=== PATIENT | male | born 1975 | race Caucasian/White ===

== ENCOUNTER 2017-01-30 20:26 | Emergency (ER) | payer BC ==
[~2017-01-30] VITALS: Ht 190.5 cm; Wt 105.0 kg
[~2017-01-30 20:26] MED LIST: ASPI-391 PO; OMEP20CA9 PO
[2017-01-30 20:29] VITALS: TEMP 36.7; Ht 190.5 cm; Wt 105.0 kg
[2017-01-30 21:18] LABS: BASO % 0.2 %; BASO ABS # 0.02 K/uL (0-0.2); COMPLETE YES; EOS % 2.8 %; HEMATOCRIT 45.5 % (42-52); IG% 0.2 %; LYMPH % 33.7 %; LYMPH ABS # 3.11 K/uL (1.2-3.4); MEAN CELL VOLUME 90.3 fL (80-100); MEAN CORPUSCULAR HEMOGLOBIN 31.5 pg (25-34); MEAN CORPUSCULAR HGB CONC 34.9 g/dl (32-36); MEAN PLATELET VOLUME 9.3 fL (7.4-10.4); MONO % 10.3 %; NEUT % 52.8 %; PLATELET COUNT 313 K/uL (130-400); RED BLOOD COUNT 5.04 M/uL (4.7-6.1); WHITE BLOOD COUNT 9.24 K/uL (4.8-10.8)
[2017-01-30] MEDS ORDERED: SODIUM CHLORIDE 0.9% 1000ML 1,000 ML IV SCH (21:30)
[2017-01-30 21:42] LABS: BUN/CREATININE RATIO 12.1 (10-20); CALCIUM 8.7 mg/dl (8.5-10.1); CREATININE 1.4 mg/dl (0.60-1.40); POTASSIUM 3.8 mmol/L (3.5-5.1)
[2017-01-30 21:45] LABS: ALB/GLOB RATIO 1.2 (0.9-2)
--- NOTE | 2017-01-30 21:49 | DIAGNOSTIC IMAGING REPORT ---
CHEST ONE VIEW PORTABLE CLINICAL HISTORY: Weakness. COMPARISON STUDY: Chest radiograph June 12, 2014. FINDINGS: The lung volumes are normal. No consolidation is identified and there is no evidence of pulmonary edema. Cardiomediastinal silhouette is normal. Pulmonary vascularity is normal. The appearance of the chest is unchanged. IMPRESSION: No acute cardiopulmonary findings. Electronically signed by: Sascha Zamora M.D. 01/30/2017 9:48 PM Dictated Date/Time: 01/30/2017 9:47 PM
[2017-01-30 22:05] LABS: VEN BLD GAS O2 SATURATION 90.4 %; VEN BLOOD GAS BASE EXCESS 1.2 mEq/L
[2017-01-30 22:14] LABS: MAGNESIUM 2.1 mg/dl (1.8-2.4); PHOSPHORUS 3.4 mg/dl (2.5-4.9); THYROID STIMULATING HORMONE 4.61 uIu/ml (0.300-4.500)
[2017-01-30 22:22] VITALS: BP 138/76; PULSE 70; O2SAT 95
--- NOTE | 2017-01-30 22:44 | EMERGENCY ROOM VISIT NOTE ---
History Report prepared by Jonn: Aixa Vaz Under the Supervision of: Dr. Vitaly Duggan M.D. First contact with patient: 21:03 Chief Complaint: OTHER COMPLAINT Stated Complaint: SYMTOMS RESEMBLING A STROKE History of Present Illness The patient is a 41 year old white male with a past medical history of PVC, reflux, appendectomy who presents to the ED with a cc of persistent fatigue beginning yesterday. Positive chest pain, heart fluttering, weakness. Had headache, diaphoresis, difficulty concentrating yesterday. Negative SOB, sinus pressure, drainage, cough, nausea, vomiting, abdominal pain. 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 Source of History: patient Onset: yesterday Position: other (global) Quality: other (fatigue) Timing: other (persistent) Associated Symptoms: + headache, + diaphoresis, + chest pain, + weakness, No cough, No SOB, No nausea, No vomiting, No abdominal pain Note: Pt reports heart fluttering, difficulty concentrating. Pt denies sinus pressure , drainage. Review of Systems See HPI for pertinent positives and negatives. A total of ten systems were reviewed and were otherwise negative. Past Medical & Surgical Medical Problems: (1) PVCs (premature ventricular contractions) Family History No pertinent family history stated. Social History Smoking Status: Former Smoker Alcohol Use: occasionally Drug Use: none Housing Status: lives with family Occupation Status: employed Current/Historical Medications Scheduled PRN Omeprazole (Prilosec), 20 MG PO DAILY PRN for GI Upset Allergies Coded Allergies: No Known Allergies (Verified , 03/01/10) Physical Exam Vital Signs Date Time Temp Pulse Resp B/P (MAP) Pulse Ox O2 Delivery O2 Flow Rate FiO2 01/30/17 22:22 70 18 138/76 95 Room Air 01/30/17 21:58 73 20 141/75 97 Room Air 01/30/17 20:57 84 01/30/17 20:29 36.7 77 18 134/83 97 Room Air Physical Exam GENERAL: Awake, alert, well-appearing, NAD, poor dentition. HENT: Normocephalic, atraumatic. EYES: Normal conjunctiva. Sclera non-icteric. NECK: Supple. No nuchal rigidity. FROM. RESPIRATORY: CTAB, no rhonchi, wheezing, crackles CARDIAC: RRR, no MRG ABDOMEN: Soft, NTND, BS+ MSK: No chest wall TTP, no LE edema NEURO: GCS 15, CN 2-12 intact, 5/5 strength in upper and lower extremities, good finger to nose, no pronator drift, no sensory deficits. SKIN: No rash or jaundice noted. Medical Decision & Procedures ER Provider Diagnostic Interpretation: X-ray: Per my interpretation, radiologist review. CHEST ONE VIEW PORTABLE CLINICAL HISTORY: Weakness. COMPARISON STUDY: Chest radiograph June 12, 2014. FINDINGS: The lung volumes are normal. No consolidation is identified and there is no evidence of pulmonary edema. Cardiomediastinal silhouette is normal. Pulmonary vascularity is normal. The appearance of the chest is unchanged. IMPRESSION: No acute cardiopulmonary findings. Electronically signed by: Sascha Zamora M.D. 01/30/2017 9:48 PM Dictated Date/Time: 01/30/2017 9:47 PM Laboratory Results 01/30/17 21:08 Red Blood Count 5.04, Mean Corpuscular Volume 90.3, Mean Corpuscular Hemoglobin 31.5, Mean Corpuscular Hemoglobin Concent 34.9, Mean Platelet Volume 9.3, Neutrophils (%) (Auto) 52.8, Lymphocytes (%) (Auto) 33.7, Monocytes (%) (Auto) 10.3, Eosinophils (%) (Auto) 2.8, Basophils (%) (Auto) 0.2, Neutrophils # (Auto ) 4.88, Lymphocytes # (Auto) 3.11, Monocytes # (Auto) 0.95, Eosinophils # (Auto ) 0.26, Basophils # (Auto) 0.02 01/30/17 21:08 Test 01/30/17 21:08 01/30/17 21:43 White Blood Count 9.24 K/uL (4.8-10.8) Red Blood Count 5.04 M/uL (4.7-6.1) Hemoglobin 15.9 g/dL (14.0-18.0) Hematocrit 45.5 % (42-52) Mean Corpuscular Volume 90.3 fL (80-100) Mean Corpuscular Hemoglobin 31.5 pg (25-34) Mean Corpuscular Hemoglobin Concent 34.9 g/dl (32-36) Platelet Count 313 K/uL (130-400) Mean Platelet Volume 9.3 fL (7.4-10.4) Neutrophils (%) (Auto) 52.8 % Lymphocytes (%) (Auto) 33.7 % Monocytes (%) (Auto) 10.3 % Eosinophils (%) (Auto) 2.8 % Basophils (%) (Auto) 0.2 % Neutrophils # (Auto) 4.88 K/uL (1.4-6.5) Lymphocytes # (Auto) 3.11 K/uL (1.2-3.4) Monocytes # (Auto) 0.95 K/uL (0.11-0.59) Eosinophils # (Auto) 0.26 K/uL (0-0.5) Basophils # (Auto) 0.02 K/uL (0-0.2) RDW Standard Deviation 41.6 fL (36.4-46.3) RDW Coefficient of Variation 12.6 % (11.5-14.5) Immature Granulocyte % (Auto) 0.2 % Immature Granulocyte # (Auto) 0.02 K/uL (0.00-0.02) Anion Gap 6.0 mmol/L (3-11) Est Creatinine Clear Calc Drug Dose 90.1 ml/min Estimated GFR () 71.3 Estimated GFR (Non- 61.5 BUN/Creatinine Ratio 12.1 (10-20) Calcium Level 8.7 mg/dl (8.5-10.1) Phosphorus Level 3.4 mg/dl (2.5-4.9) Magnesium Level 2.1 mg/dl (1.8-2.4) Total Bilirubin 0.6 mg/dl (0.2-1) Aspartate Amino Transf (AST/SGOT) 23 U/L (15-37) Alanine Aminotransferase (ALT/SGPT) 50 U/L (12-78) Alkaline Phosphatase 70 U/L (45-117) Troponin I < 0.015 ng/ml (0-0.045) Total Protein 7.2 gm/dl (6.4-8.2) Albumin 3.9 gm/dl (3.4-5.0) Globulin 3.3 gm/dl (2.5-4.0) Albumin/Globulin Ratio 1.2 (0.9-2) Thyroid Stimulating Hormone (TSH) 4.610 uIu/ml (0.300-4.500) Venous Blood pH 7.44 (7.36-7.41) Venous Blood Partial Pressure CO2 38 mmHg (38.0-50.0) Venous Blood Partial Pressure O2 59 mmHg Venous Blood HCO3 25 mmol/L Venous Blood Oxygen Saturation 90.4 % Venous Blood Base Excess 1.2 mEq/L Lyme Disease IgG Antibody NEG (NEG) Lyme Disease IgM Antibody NEG (NEG) Laboratory results reviewed by me Medications Administered Medications (Trade) Dose Ordered Sig/Bharati Route Start Time Stop Time Status Last Admin Dose Admin Sodium Chloride 1,000 ml @ 999 mls/hr Q1H1M IV 01/30/17 21:30 01/30/17 23:21 DC 01/30/17 21:30 999 MLS/HR ECG Indication: chest pain Rate (beats per minute): 69 Rhythm: normal sinus Findings: other (normal intervals, T wave flattening lead 3, no other STS changes or TWI) ED Course 2105: The patient was evaluated in room B8. A complete history and physical exam was performed. 2228: I reevaluated the patient. He is resting comfortably. Medical Decision The patient is a 41 year old white male with a past medical history of PVC, reflux, appendectomy who presents to the ED with a cc of persistent fatigue beginning yesterday. Triage Nursing notes reviewed. The patient's presentation and history were concerning for dehydration, metabolic abnormality, electrolyte imbalance, arrhythmia, hypothyroid. Patient was seen and evaluated at the bedside. Patient had no focal neuro deficit vital signs were stable. 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 Patient had no symptoms at this time. Patient's EKG was fairly benign 100 and negative chest x-ray laboratory is unremarkable trace the elevated TSH. Patient states he was feeling better was told to follow-up with his PCP for thyroid studies. Patient was given strict follow-up, discharge, return percussions. Patient was also counseled on smoking cessation. Patient clinic care and was discharged home. Medication Reconcilliation Current Medication List: was personally reviewed by me Blood Pressure Screening Patient's blood pressure: Normal blood pressure Blood pressure disposition: Did not require urgent referral Impression Primary Impression: Fatigue Additional Impressions: Generalized weakness Encounter for smoking cessation counseling Scribe Attestation The scribe's documentation has been prepared under my direction and personally reviewed by me in its entirety. I confirm that the note above accurately reflects all work, treatment, procedures, and medical decision making performed by me. Departure Information Dispostion Home / Self-Care Referrals Jignesh Gambino M.D.([facility]) (PCP) Patient Instructions Fatigue Manage, My [facility] Additional Instructions Please return to the emergency department if you have worsening or recurrent symptoms not amenable to at-home treatment. Please call for a follow-up appointment with her primary care physician. Please take your medications as prescribed. If you have other concerns and/or complaints please feel free to also call your primary care physician's office or return the ED for further evaluation, management, and treatment. Problem Qualifiers Primary Impression: Fatigue Fatigue type: unspecified Qualified Codes: R53.83 - Other fatigue
[2017-01-30 22:57] LABS: LYME DISEASE AB IGG NEG (NEG); LYME DISEASE AB IGM NEG (NEG)
== END 2017-01-30 22:50 | disposition home or self-care (01) ==
LOC: C.EDB 20:27
DX: R53.83 Other fatigue (principal); R53.1 Weakness; Z87.891 Personal history of nicotine dependence; Z90.89 Acquired absence of other organs

== ENCOUNTER 2017-06-02 19:24 | Emergency (ER) | payer BC ==
[~2017-06-02] VITALS: Ht 190.5 cm; Wt 109.0 kg
[~2017-06-02 19:24] MED LIST changes: -ASPI-391 PO
[2017-06-02 19:29] VITALS: TEMP 36.6; Ht 190.5 cm; Wt 109.0 kg
[2017-06-02 19:38] VITALS: O2SAT 98
--- NOTE | 2017-06-02 19:47 | EMERGENCY ROOM VISIT NOTE ---
History First contact with patient: 19:32 Chief Complaint: CARDIAC ASSESSMENT Stated Complaint: DISCOMFORT/PAIN IN LEFT CHEST AND ARM Nursing Triage Summary: Pt presents with c/o left sided chest pain into left arm, burping a lot today, fatigue with work, sob with exertion. Episode of cp last night, resolved then returned this morning at 0900 and has been constant. Reports hx of PVC's. History of Present Illness The patient is a 41 year old male who presents to the Emergency Room with complaints of chest pain. Left side of his chest radiating to left elbow, severity 2/10, no associated diaphoresis, shortness of breath, nausea or vomiting. No worse on palpation, exertion or position. It started at 8pm last night, lasted for 15 minutes, occurred when lying up in bed watching TV, then laid down and went to sleep. He did not wake up with pain. 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 He has known reflex and has noticed increased burping with acid taste in the last 2 days. He has taken omeprazole for a number of years which usually keeps it under control. No recent changes to his diet. 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 He denies any calf pain, swelling or recent surgeries. He denies any fevers, chills, nasal congestion, ear pain, cough, sore throat. In past 3-4 weeks two colleagues have had heart attack and a bypass so he is hypersensitive to his symptoms. Stopped smoking October 19 - pack-year history. No chew or illicit drugs. Review of Systems All other systems reviewed and otherwise negative other than HPI Past Medical/Surgical History Medical Problems: (1) PVCs (premature ventricular contractions) Social History Smoking Status: Former Smoker (quit Oct 19 2016) Alcohol Use: occasionally Drug Use: none Housing Status: lives with family Occupation Status: employed Current/Historical Medications Scheduled PRN Omeprazole (Prilosec), 20 MG PO DAILY PRN for GI Upset Physical Exam Vital Signs Date Time Temp Pulse Resp B/P (MAP) Pulse Ox O2 Delivery O2 Flow Rate FiO2 06/02/17 20:21 78 06/02/17 19:53 76 20 146/92 98 Room Air 06/02/17 19:38 98 Room Air 06/02/17 19:29 36.6 87 18 156/109 97 Room Air Physical Exam General Appearance: WD/WN, no apparent distress, + obese Head: normocephalic, atraumatic Eyes: normal inspection (pupils equal), EOMI ENT: pharynx normal Neck: supple, no JVD, trachea midline, + pertinent finding (negative spurling's maneuver) Respiratory/Chest: chest non-tender, lungs clear, normal breath sounds, no respiratory distress, no accessory muscle use, + pertinent finding (pain is not reproducible on palpation) Cardiovascular: regular rate, rhythm, no edema, no murmur, normal peripheral pulses Abdomen / GI: normal bowel sounds, non tender, soft Back: no CVA tenderness Extremities: no calf tenderness, normal capillary refill, no pedal edema 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 No pneumothorax, pleural effusion, focal airspace consolidation or overt pulmonary edema. Bones of the chest appear grossly intact. IMPRESSION: No acute process. The above report was generated using voice recognition software. It may contain grammatical, syntax or spelling errors. Electronically signed by: Denver Houston M.D. 06/02/2017 8:09 PM Dictated Date/Time: 06/02/2017 8:08 PM Laboratory Results 06/02/17 19:40 Red Blood Count 4.89, Mean Corpuscular Volume 90.2, Mean Corpuscular Hemoglobin 31.1, Mean Corpuscular Hemoglobin Concent 34.5, Mean Platelet Volume 9.2, Neutrophils (%) (Auto) 57.0, Lymphocytes (%) (Auto) 30.8, Monocytes (%) (Auto) 9.8, Eosinophils (%) (Auto) 2.1, Basophils (%) (Auto) 0.1, Neutrophils # (Auto) 4.92, Lymphocytes # (Auto) 2.66, Monocytes # (Auto) 0.85, Eosinophils # (Auto) 0.18, Basophils # (Auto) 0.01 06/02/17 19:40 Test 06/02/17 19:40 White Blood Count 8.64 K/uL (4.8-10.8) Red Blood Count 4.89 M/uL (4.7-6.1) Hemoglobin 15.2 g/dL (14.0-18.0) Hematocrit 44.1 % (42-52) Mean Corpuscular Volume 90.2 fL (80-100) Mean Corpuscular Hemoglobin 31.1 pg (25-34) Mean Corpuscular Hemoglobin Concent 34.5 g/dl (32-36) Platelet Count 336 K/uL (130-400) Mean Platelet Volume 9.2 fL (7.4-10.4) Neutrophils (%) (Auto) 57.0 % Lymphocytes (%) (Auto) 30.8 % Monocytes (%) (Auto) 9.8 % Eosinophils (%) (Auto) 2.1 % Basophils (%) (Auto) 0.1 % Neutrophils # (Auto) 4.92 K/uL (1.4-6.5) Lymphocytes # (Auto) 2.66 K/uL (1.2-3.4) Monocytes # (Auto) 0.85 K/uL (0.11-0.59) Eosinophils # (Auto) 0.18 K/uL (0-0.5) Basophils # (Auto) 0.01 K/uL (0-0.2) RDW Standard Deviation 41.7 fL (36.4-46.3) RDW Coefficient of Variation 12.6 % (11.5-14.5) Immature Granulocyte % (Auto) 0.2 % Immature Granulocyte # (Auto) 0.02 K/uL (0.00-0.02) D-Dimer 220 ug/L FEU (0-500) Anion Gap 6.0 mmol/L (3-11) Est Creatinine Clear Calc Drug Dose 123.4 ml/min Estimated GFR () 102.2 Estimated GFR (Non- 88.1 BUN/Creatinine Ratio 15.2 (10-20) Calcium Level 8.4 mg/dl (8.5-10.1) Troponin I < 0.015 ng/ml (0-0.045) Chemistry Specimen Hemolysis Medications Administered Medications (Trade) Dose Ordered Sig/Bharati Route Start Time Stop Time Status Last Admin Dose Admin Ranitidine HCl (zANTac TAB) 150 mg NOW STAT PO 06/02/17 19:58 06/02/17 19:59 DC 06/02/17 20:09 150 MG ED Course 19:40 Complete history and physical was performed by myself 20:[address] Verma who separately performed history and physical 21:15 Patient was reassessed, lab work, imaging and EKG was discussed with the patient and he was discharged in a stable condition. Information leaflet was given for reducing his GERD symptoms. Medical Decision Prior records/ancillary studies reviewed. Triage Nursing notes reviewed. Additional history obtained from patient. The patient's history was concerning for chest pain. Differential diagnosis: Etiologies such as cardiac ischemia, aortic dissection, pulmonary embolism, pneumonia, pneumothorax, musculoskeletal, infections, pericarditis, myocarditis , esophageal rupture, gastrointestinal, as well as others were entertained. Physical examination: As above. Chest pain not reproducible on palpation ER treatment provided: Ranitidine 150mg PO On reassessment the patient felt better. Diagnostic interpretation by me: The electrocardiogram was negative for pathologic change. The labs were unremarkable with negative troponin and d-dimer Imaging studies: Chest x-ray negative for acute pathology as above By the evaluation outlined above emergent etiologies such as cardiac ischemia, aortic dissection, pulmonary embolism, pneumonia, pneumothorax, infections, pericarditis, myocarditis, gastrointestinal, as well as others were deemed relatively unlikely. Given history and distribution of pain in T1 distribution on left side this is most likely a nerve root irritation. Advised against NSAIDs given GERD which is another possible etiology of his pain. The patient was informed about the findings as listed above. All questions were answered and he was pleased with the treatment. Return instructions were outlined and the patient was discharged in stable condition. Referral: The patient was referred back to his primary care physician for follow-up in the next week for a recheck of the current condition. Recommend discussing management/investigations for GERD, chronic diarrhea and likely T1 nerve root irritation pain. Medication Reconcilliation Current Medication List: was personally reviewed by me Blood Pressure Screening Patient's blood pressure: Elevated blood pressure Blood pressure disposition: Elevated BP felt to be situational, Referred to PCP Impression Primary Impression: Non-cardiac chest pain Departure Information Dispostion Home / Self-Care Condition GOOD Referrals Jignesh Gambino M.D. ([facility]) (PCP) Patient Instructions My [facility] Additional Instructions CHEST PAIN INSTRUCTIONS: Acetaminophen(Tylenol) may be used for fever or pain. Use 1000mg every eight hours as needed. Avoid using more than 3000mg in a 24 hour period. This is available over the counter. Read all the package inserts or medication information paperwork provided. If you have any questions or concerns call your primary provider, pharmacist or the ER for assistance. Rest and drink plenty of fluids as tolerated. Continue current medications. Avoid strenuous activities and anything that worsens your pain. Resume normal activities once your symptoms resolve. Return to the ER immediately for worsening or persistent chest pain, abdominal pain, vomiting, fevers, chest pains, difficulty breathing, worsening of your condition, or as needed. Follow up with your primary physician in 2-3 days for a recheck of your current condition. Recommend you discuss further treatment/investigations of your reflux as this no longer appears well controlled. Discuss chronic diarrhea as this has never been investigated. You pain is likely due to a neuropathy likely coming from T1 level in your back - recommend you discuss this with your PCP in addition as physical therapy can help with this. Resident Tracking Resident Involvement: Resident Care Provided Care Provided: Adult ED
[2017-06-02] MEDS ORDERED: RANITIDINE HCL 150 MG TAB PO STA (19:58)
[2017-06-02 20:01] LABS: BASO % 0.1 %; BASO ABS # 0.01 K/uL (0-0.2); COMPLETE YES; EOS % 2.1 %; HEMATOCRIT 44.1 % (42-52); IG% 0.2 %; LYMPH % 30.8 %; LYMPH ABS # 2.66 K/uL (1.2-3.4); MEAN CELL VOLUME 90.2 fL (80-100); MEAN CORPUSCULAR HEMOGLOBIN 31.1 pg (25-34); MEAN CORPUSCULAR HGB CONC 34.5 g/dl (32-36); MEAN PLATELET VOLUME 9.2 fL (7.4-10.4); MONO % 9.8 %; PLATELET COUNT 336 K/uL (130-400); RED BLOOD COUNT 4.89 M/uL (4.7-6.1); WHITE BLOOD COUNT 8.64 K/uL (4.8-10.8)
--- NOTE | 2017-06-02 20:11 | DIAGNOSTIC IMAGING REPORT ---
CHEST ONE VIEW PORTABLE HISTORY: 41 years-old Male chest pain acute atypical chest pain COMPARISON: Portable chest radiograph 01/30/2017 TECHNIQUE: Portable upright AP view of the chest FINDINGS: Cardiomediastinal and hilar silhouettes are within normal limits. No pneumothorax, pleural effusion, focal airspace consolidation or overt pulmonary edema. Bones of the chest appear grossly intact. IMPRESSION: No acute process. The above report was generated using voice recognition software. It may contain grammatical, syntax or spelling errors. Electronically signed by: Denver Houston M.D. 06/02/2017 8:09 PM Dictated Date/Time: 06/02/2017 8:08 PM
--- NOTE | 2017-06-02 20:25 | EMERGENCY ROOM VISIT NOTE ---
ED Visit Note First contact with patient: 19:31 I have personally evaluated this patient examined her and reviewed the pertinent labs and data. I have discussed the case with Dr. Cunningham, the resident physician and agree with the plan. Please refer to the PA note. This patient comes in after having persistent chest pains since 9 o'clock this mornings and one small spot in his anterior chest and it radiates to his armpit. He says he actually feels better when he gets up and moves, he is a operator and truck driver. It is Non-pleuritic and he has no shortness of breath or palpitations or syncope. No trauma. He appears comfortable on my exam is not significantly reproducible. EKG does not show anything to suggest acute coronary syndrome or arrhythmia. Chest x-ray was unremarkable. His cardiac enzyme was negative despite having almost 12 hours of pain persistently and I think this makes cardiac disease highly unlikely his symptoms are atypical as well. There is no evidence of pneumothorax CHF or pneumonia. His d-dimer is within normal limits and in a low pretest probability study makes PE highly unlikely. This may be musculoskeletal or GI related. He will follow up with his doctor for recheck and further treatment and evaluation return to the ER if any new problems or concerns.
[2017-06-02 20:38] LABS: BLOOD UREA NITROGEN 16 mg/dl (7-18); BUN/CREATININE RATIO 15.2 (10-20); CALCIUM 8.4 mg/dl (8.5-10.1); CARBON DIOXIDE 27 mmol/L (21-32); CHLORIDE 105 mmol/L (98-107); CREATININE 1.04 mg/dl (0.60-1.40); GLUCOSE 96 mg/dl (70-99); POTASSIUM 3.8 mmol/L (3.5-5.1); SODIUM 138 mmol/L (136-145)
[2017-06-02 21:50] VITALS: BP 134/84; PULSE 74; O2SAT 98
== END 2017-06-02 21:50 | disposition home or self-care (01) ==
LOC: C.EDB 19:25 → C.EDA 21:50
DX: R07.89 Other chest pain (principal); M79.602 Pain in left arm; Z87.891 Personal history of nicotine dependence

== ENCOUNTER 2021-07-15 16:48 | Observation (INO) ==
--- NOTE | 2021-07-15 17:28 | XRay Report ---
XR chest 1V portable CLINICAL HISTORY: Atypical chest pain TECHNIQUE: Single frontal radiograph of the chest was obtained. Comparison: Chest 1 view 03/27/2021 FINDINGS: No lines and tubes are seen. The cardiomediastinal silhouette is normal. The lungs are clear. No evid ence of pleural effusion or pneumothorax. IMPRESSION: No acute chest disease. ACT 112: Negative or not required by law. Electronically signed by: Horacio Medrano M.D. 07/15/2021 5:27 PM
[2021-07-15 17:51] LABS: Basophils # (auto) 0.02 K/uL (0-0.2); Basophils % (auto) 0.3 %; Eosinophils # (auto) 0.25 K/uL (0-0.5); Eosinophils % (auto) 3.6 %; Hemoglobin 15.7 g/dL (14.0-18.0); Immature Granulocytes # (auto) 0.01 K/uL (0.00-0.02); Immature Granulocytes % (auto) 0.1 %; Lymphocytes # (auto) 2.01 K/uL (1.2-3.4); Lymphocytes % (auto) 28.8 %; Mean Corpuscular Hgb Conc 34.1 g/dL (32-36); Mean Corpuscular Volume 90.9 fL (80-100); Mean Platelet Volume 9.3 fL (7.4-10.4); Monocytes # (auto) 0.86 K/uL (0.11-0.59); Monocytes % (auto) 12.3 %; Neutrophils # (auto) 3.82 K/uL (1.4-6.5); Neutrophils % (auto) 54.9 %; Platelet Count 329 K/uL (130-400); RDW Standard Deviation 43.1 fL (36.4-46.3); Red Blood Count 5.06 M/uL (4.7-6.1); White Blood Count 6.97 K/uL (4.8-10.8)
[2021-07-15 18:00] LABS: INR 0.9 (0.9-1.1); Partial Thromboplastin Ratio 1.1; Partial Thromboplastin Time 27.9 Seconds (21.0-31.0); Prothrombin Time 9.6 Seconds (9.0-12.0)
[2021-07-15 18:31] LABS: Appearance Urine Clear (Clear); Bilirubin Urine Negative (Negative); Blood Urine Negative (Negative); Color Urine Yellow; Glucose Urine UA Negative (Negative); Ketones Urine Negative (Negative); Leukocyte Esterase Urine Negative (Negative); Nitrite Urine Negative (Negative); Protein Urine Negative (Negative); Specific Gravity Urine 1.006 (1.000-1.030); Urobilinogen Urine Negative (Negative); pH Urine 6.5 (4.5-7.5)
[2021-07-15 18:32] LABS: Alanine Aminotransferase 30 U/L (7-52); Albumin Globulin Ratio 1.6 (0.9-2); Albumin Level 4.4 gm/dl (3.4-5.0); Alkaline Phosphatase 63 U/L (34-104); Anion Gap 6 (3-11); Aspartate Aminotransferase 21 U/L (13-39); BUN Creatinine Ratio 12.2 (10-20); Bilirubin,Total 0.9 mg/dl (0.2-1.0); Blood Urea Nitrogen 12 mg/dl (6-23); Calcium 9.1 mg/dl (8.5-10.1); Carbon Dioxide 29 mmol/L (21-32); Chloride 103 mmol/L (98-107); Creatinine Clr Calc Pharmacy 128.8 ml/min; Est GFR (African American) 106.7 ml/min; Est GFR (Non-African American) 92.1 ml/min; Globulin 2.8 gm/dl (2.5-4.0); Glucose 88 mg/dl (70-99(Fasting)); Potassium 3.7 mmol/L (3.5-5.1); Sodium 138 mmol/L (136-145); Total Protein 7.2 gm/dl (6.0-8.3)
[2021-07-15 20:28] LABS: D Dimer 260 ug/L FEU (0-500)
[2021-07-15] MEDS ORDERED: ASPIRIN CHEW 324 MG PO STA (20:29)
[2021-07-15 21:16] LABS: Troponin I < 0.03 ng/ml (0-0.04)
--- NOTE | 2021-07-16 00:03 | Emergency Department Note ---
History of Present Illness General Chief Complaint: Arrhythmia/Palpitations Stated Complaint: HEART PALPITATIONS, WEARING MONITOR, GETTING WORSE Time Seen by Provider: 07/15/21 20:07 History of Present Illness Provider Complaint: + palpitations Onset (ago): month(s) (1) Duration: + Intermittent Severity: mild Maximum Pain Intensity: 3 Current Pain Intensity: 3 Context: + occurred during rest and + occurred during exertion Associated symptoms: + chest pain and + shortness of breath; no syncope, no nausea, no vomiting, no diaphoresis, no cough or no feeling of impending doom HPI narrative: Patient states his symptoms began after testing positive for COVID-19 1 month ago. Patient was unvaccinated. Patient states he was seen by [facility] cardiology and has a Holter monitor on but he states that he does not have the readings for. Patient states he has an yakov on his watch which shows that he has multiple PVCs. Home Medications Medication Instructions Recorded Confirmed Type omeprazole 20 mg delayed 20 mg PO DAILY PRN 06/29/18 07/15/21 History release,disintegrating tablet Allergies Allergy/AdvReac Type Severity Reaction Status Date / Time No Known Allergies Allergy Verified 07/15/21 21:14 Past Med/Surg History Medical History COVID Palpitations Surgical History Hx of appendectomy Family History Other Diabetes Hypertension Social History Smoking Status: Former smoker Preferred Language: Japanese Feels Safe at Home: Yes Review of Systems A total of 10 systems reviewed and were otherwise negative Physical Exam Vital Signs: Vital Signs - 24 hr 07/15/21 16:53 07/15/21 20:30 07/15/21 22:00 Temperature 36.3 C L Temperature Source Oral Pulse Rate 79 72 Pulse Rate [Left F og] 68 63 Respiratory Rate 18 20 20 Respiratory Effort / Characteristics Non-Labored Non-Labored Sponta neous Non-Labored Sponta neous Respiratory Depth Normal Normal Normal Respiratory Patter n Regular Regular Blood Pressure 134/92 Blood Pressure [Ri ght Arm] 142/95 H 131/93 Blood Pressure Martina n 106 Blood Pressure Martina n [Right Arm] 110 105 Blood Pressure Pos ition Sitting Blood Pressure Pos ition [Right Arm] Sitting Sitting Pulse Oximetry 99 100 98 Oxygen Delivery Me thod Room Air Room Air Room Air Sepsis Recent Feve r Within 48 Hours No Sepsis New/Unexpla ined Change in Men williams Status No Sepsis Action Take n by Nursing No Action Required 07/15/21 22:30 Temperature Temperature Source Pulse Rate 63 Pulse Rate [Left F og] Respiratory Rate 17 Respiratory Effort / Characteristics Respiratory Depth Respiratory Patter n Blood Pressure 134/82 Blood Pressure [Ri ght Arm] Blood Pressure Martina n 99 Blood Pressure Martina n [Right Arm] Blood Pressure Pos ition Blood Pressure Pos ition [Right Arm] Pulse Oximetry 97 Oxygen Delivery Me thod Room Air Sepsis Recent Feve r Within 48 Hours Sepsis New/Unexpla ined Change in Men williams Status Sepsis Action Take n by Nursing Physical Exam: Physical Exam GENERAL: He is oriented to person, place, and time. He appears well-developed and well-nourished. He does not appear distressed. HENT: Exam performed. - Head: Normocephalic and atraumatic. - Right Ear: External ear normal. No mastoid tenderness. - Left Ear: External ear normal. No mastoid tenderness. - Mouth/Throat: The oropharynx is clear and moist. No trismus in the jaw. No dental abscesses or uvula swelling. No oropharyngeal exudate or tonsillar abscesses. EYES: Conjunctivae and EOM are normal. Pupils are equal, round, and reactive to light. Right eye exhibits no discharge. Left eye exhibits no discharge. No scleral icterus. NECK: Normal range of motion. Neck supple. No JVD present. No spinous process tenderness present. No carotid bruit present. No rigidity. No tracheal deviation and normal range of motion present. No Brudzinski's sign and no Kernig's sign noted. CV: Normal rate, regular rhythm, normal heart sounds and intact distal pulses. There is no peripheral edema. Palpable radial pulses bue. PULM/CHEST: Effort normal and breath sounds normal. No respiratory distress. No stridor. He has no wheezes. He has no rales. - Chest Wall: He exhibits no tenderness. Holter monitor device in place. ABD: The abdomen is soft. Bowel sounds are normal. He has no distension. No mass is present. There is no tenderness. There is no rebound, no guarding, no Le's sign and no tenderness at McBurney's point. Rovsig negative. MUSC/SKEL: Normal range of motion. There is no peripheral edema, tenderness or deformity. LYMPH: No cervical adenopathy. NEURO: He is alert and oriented to person, place, and time. He has normal strength. No cranial nerve deficit or sensory deficit. Coordination and gait normal. GCS eye subscore is 4. GCS verbal subscore is 5. GCS motor subscore is 6. Cerebellar tests wnl. SKIN: Skin is warm and dry. He is not diaphoretic. PSYCH: He has a normal mood and affect. Behavior is normal. Judgment and thought content normal. Course Course 2006: The patient was evaluated in room C7. A complete history and physical exam was performed Cardiac monitoring: An order was placed for continuous cardiac monitoring. The monitor shows a rate of 70 with sinus rhythm 2130: Vital signs stable. Labs and imaging within normal limits. Patient will be admitted for observation for chest pain rule out ACS. Administered Medications Discontinued Medications Aspirin (Aspirin Chew 324 Mg) 324 mg PO NOW STA Stop: 07/15/21 20:30 Last Admin: 07/15/21 20:35 Dose: 324 mg Documented by: [id number] Medical Decision Making Laboratory Data Result diagrams: 07/15/21 17:32 07/15/21 17:32 Lab Results 07/15/21 07/15/21 07/15/21 Range/Units 17:32 17:32 17:32 WBC 6.97 (4.8-10.8) K/uL RBC 5.06 (4.7-6.1) M/uL Hgb 15.7 (14.0-18.0) g/dL Hct 46.0 (42-52) % MCV 90.9 (80-100) fL MCH 31.0 (25-34) pg MCHC 34.1 (32-36) g/dL RDW Std Deviation 43.1 (36.4-46.3) fL RDW Coeff of Colleen 13.0 (11.5-14.5) % Plt Count 329 (130-400) K/uL MPV 9.3 (7.4-10.4) fL Immature Gran % (Auto) 0.1 % Neut % (Auto) 54.9 % Lymph % (Auto) 28.8 % [place] % (Auto) 12.3 % Eos % (Auto) 3.6 % Baso % (Auto) 0.3 % Neut # (Auto) 3.82 (1.4-6.5) K/uL Lymph # (Auto) 2.01 (1.2-3.4) K/uL [place] # (Auto) 0.86 H (0.11-0.59) K/uL Eos # (Auto) 0.25 (0-0.5) K/uL Baso # (Auto) 0.02 (0-0.2) K/uL Immature Gran # (Auto) 0.01 (0.00-0.02) K/uL PT 9.6 (9.0-12.0) Seconds INR 0.9 (0.9-1.1) APTT 27.9 (21.0-31.0) Seconds PTT Ratio 1.1 D-Dimer 260 (0-500) ug/L FEU Sodium 138 (136-145) mmol/L Potassium 3.7 (3.5-5.1) mmol/L Chloride 103 (98-107) mmol/L Carbon Dioxide 29 (21-32) mmol/L Anion Gap 6 (3-11) BUN 12 (6-23) mg/dl Creatinine 0.98 (0.6-1.4) mg/dl Est Cr Clr Drug Dosing 128.8 ml/min Est GFR ( Amer) 106.7 ml/min Est GFR (Non-Af Amer) 92.1 ml/min BUN/Creatinine Ratio 12.2 (10-20) Glucose 88 (70-99(Fasting)) mg/dl Calcium 9.1 (8.5-10.1) mg/dl Magnesium (1.7-2.4) mg/dl Total Bilirubin 0.9 (0.2-1.0) mg/dl AST 21 (13-39) U/L ALT 30 (7-52) U/L Alkaline Phosphatase 63 (34-104) U/L Troponin I < 0.03 (0-0.04) ng/ml Total Protein 7.2 (6.0-8.3) gm/dl Albumin 4.4 (3.4-5.0) gm/dl Globulin 2.8 (2.5-4.0) gm/dl Albumin/Globulin Ratio 1.6 (0.9-2) Urine Color Urine Appearance (Clear) Urine pH (4.5-7.5) Ur Specific [place] (1.000-1.030) Urine Protein (Negative) Urine Glucose (UA) (Negative) Urine Ketones (Negative) Urine Blood (Negative) Urine Nitrite (Negative) Urine Bilirubin (Negative) Urine Urobilinogen (Negative) Ur Leukocyte Esterase (Negative) SARS-CoV-2, RNA, NAAT (NEGATIVE) 07/15/21 07/15/21 07/15/21 Range/Units 17:34 18:00 20:20 WBC (4.8-10.8) K/uL RBC (4.7-6.1) M/uL Hgb (14.0-18.0) g/dL Hct (42-52) % MCV (80-100) fL MCH (25-34) pg MCHC (32-36) g/dL RDW Std Deviation (36.4-46.3) fL RDW Coeff of Colleen (11.5-14.5) % Plt Count (130-400) K/uL MPV (7.4-10.4) fL Immature Gran % (Auto) % Neut % (Auto) % Lymph % (Auto) % [place] % (Auto) % Eos % (Auto) % Baso % (Auto) % Neut # (Auto) (1.4-6.5) K/uL Lymph # (Auto) (1.2-3.4) K/uL [place] # (Auto) (0.11-0.59) K/uL Eos # (Auto) (0-0.5) K/uL Baso # (Auto) (0-0.2) K/uL Immature Gran # (Auto) (0.00-0.02) K/uL PT (9.0-12.0) Seconds INR (0.9-1.1) APTT (21.0-31.0) Seconds PTT Ratio D-Dimer (0-500) ug/L FEU Sodium (136-145) mmol/L Potassium (3.5-5.1) mmol/L Chloride (98-107) mmol/L Carbon Dioxide (21-32) mmol/L Anion Gap (3-11) BUN (6-23) mg/dl Creatinine (0.6-1.4) mg/dl Est Cr Clr Drug Dosing ml/min Est GFR ( Amer) ml/min Est GFR (Non-Af Amer) ml/min BUN/Creatinine Ratio (10-20) Glucose (70-99(Fasting)) mg/dl Calcium (8.5-10.1) mg/dl Magnesium 2.0 (1.7-2.4) mg/dl Total Bilirubin (0.2-1.0) mg/dl AST (13-39) U/L ALT (7-52) U/L Alkaline Phosphatase (34-104) U/L Troponin I (0-0.04) ng/ml Total Protein (6.0-8.3) gm/dl Albumin (3.4-5.0) gm/dl Globulin (2.5-4.0) gm/dl Albumin/Globulin Ratio (0.9-2) Urine Color Yellow Urine Appearance Clear (Clear) Urine pH 6.5 (4.5-7.5) Ur Specific [place] 1.006 (1.000-1.030) Urine Protein Negative (Negative) Urine Glucose (UA) Negative (Negative) Urine Ketones Negative (Negative) Urine Blood Negative (Negative) Urine Nitrite Negative (Negative) Urine Bilirubin Negative (Negative) Urine Urobilinogen Negative (Negative) Ur Leukocyte Esterase Negative (Negative) SARS-CoV-2, RNA, NAAT NEGATIVE (NEGATIVE) Imaging Data Radiologist's Impression: Chest X-Ray 07/15/21 16:58 XR chest 1V portable CLINICAL HISTORY: Atypical chest pain TECHNIQUE: Single frontal radiograph of the chest was obtained. Comparison: Chest 1 view 03/27/2021 FINDINGS: No lines and tubes are seen. The cardiomediastinal silhouette is normal. The lungs are clear. No evidence of pleural effusion or pneumothorax. IMPRESSION: No acute chest disease. ACT 112: Negative or not required by law. Electronically signed by: Horacio Medrano M.D. 07/15/2021 5:27 PM ECG Data Indication: chest pain, palpitations and SOB/dyspnea Rate (beats per minute): 70 Rhythm: normal sinus Findings: no ST depression, no ST elevation or no prolonged QT MDM Narrative Vital signs stable. Labs and imaging within normal limits. Patient will be admitted for observation for chest pain rule out ACS. Impression & Plan Chest pain Discharge Plan Visit Data Chief Complaint: Arrhythmia/Palpitations Stated Complaint: HEART PALPITATIONS, WEARING MONITOR, GETTING WORSE Discharge Problem: Chest pain Patient Disposition: Being Evaluated by Hospitalist Forms Stand Alone Forms: [facility] Prescriptions Prescriptions: No Action omeprazole 20 mg Tablet,Disintegrat, Delay Rel 20 mg PO DAILY PRN (Reason: Acid Reflux) RF: 0 Referrals Referrals: Garret Pena DO [Primary Care Provider] -
--- NOTE | 2021-07-16 01:22 | History and Physical Report ---
DATE OF ADMISSION: 07/15/2021. CHIEF COMPLAINT: Arrhythmia, chest pain. HISTORY OF PRESENT ILLNESS: This is a 45-year-old male with a past medical history significant for pulmonary sarcoidosis, dyspnea on exertion. He had COVID in May [id number]. The patient is having frequent PVCs. He was recently placed on Zio patch for his PVCs, but the patient says lately it is getting more frequent.. Sometimes he feels some stinging in his chest. Today it was constant, he was getting tired and also shortness of breath on exertion, which prompted him to come to the ER. Since COVID in May, he still feels tired. Currently, resting comfortably and hemodynamically stable. Currently, denies any shortness of breath. No cough, no headache. Once in a while, he gets blurred visions. No runny nose, no sore throat. Appetite is okay. No difficulty swallowing. No nausea, no abdominal pain. Normal bowel and bladder movements. Ambulating and climbing steps fine. ALLERGIES: No known drug allergies. PAST MEDICAL HISTORY: As mentioned above. 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 MEDICATIONS: The patient is on omeprazole 20 daily p.r.n. FAMILY HISTORY: Significant for father has diabetes, hypertension; mother has hypertension, familial tremor; maternal grandfather has familial tremor; paternal grandmother had lung cancer. SOCIAL HISTORY: . Quit smoking in 2017, smoked half pack a day for 30 years. Alcohol rare. No drug use. REVIEW OF SYSTEMS: As per HPI. Rest of the review of systems is negative. PHYSICAL EXAMINATION: GENERAL: The patient is of moderate build, not in acute distress. VITAL SIGNS: Temperature 36.3, pulse 63, respiratory rate 17, blood pressure 134/82, oxygen 97% on room air. HEENT: Pupils equal, round, and reactive to light. Oral mucosa moist. NECK: No JVD, no neck masses. CARDIOVASCULAR: S1 and S2 heard. Regular rate and rhythm. No murmur, no gallop. RESPIRATORY SYSTEM: Normal AP diameter. No accessory muscle use. No wheezing, no crackles. ABDOMEN: Soft, bowel sounds present, nontender, no distention. CENTRAL NERVOUS SYSTEM: Cranial nerves II-XII grossly intact, nonfocal. EXTREMITIES: No edema, no erythema. LABORATORY DATA: WBC 6.9, hemoglobin 15.7, hematocrit 46, platelets 329. PT 9.6, INR 0.9, APTT 27.9, D-dimer 260. Sodium 138, potassium 3.7, chloride 103, bicarb 29, BUN 12, creatinine 0.9, serum glucose 88, calcium 9.1, magnesium 2, total bilirubin 0.9, AST 21, ALT 30, alkaline phosphatase 63. Troponin I less than 0.03. Urinalysis negative. SARS-CoV-2 RNA negative. IMAGING DATA: Chest x-ray, no acute findings. EKG: Normal sinus rhythm at a rate of 70, no significant change was found. ASSESSMENT AND PLAN: This 45-year-old male presents with frequent PVCs, and chest pain. 1. Frequent PVCs and chest pain: The patient today was feeling PVCs all day.He can feel them.He has chronic back problem, pain in the middle of the shoulder blades.. He could not differentiate whether it is chest pain or whether the pain is coming from the back. Initial workup was negative, will follow serial enzymes. The patient is also on Zio patch. Follow the echocardiogram. Keep n.p.o. Consult cardiology in the a.m. for further recommendations. 2. Gastroesophageal reflux disease: Continue omeprazole p.r.n. 3. History of pulmonary sarcoidosis: Follow up as per PCP. 4. Deep venous thrombosis prophylaxis: Sequential compression devices. DISPOSITION: Observation in [employer] service to help with discharge planning. Job ID: [id number] [facility]
[2021-07-16] MEDS ORDERED: NITROGLYCERIN SL 0.4 MG/TAB TAB SL PRN (02:11)
[2021-07-16] MEDS ORDERED: POLYETHYLENE (MIRALAX) 17 GM PACK PO PRN (02:11)
[2021-07-16] MEDS ORDERED: ACETAMINOPHEN 325 MG TAB PO PRN (02:11)
[2021-07-16] MEDS ORDERED: ONDANSETRON INJ 2 MG/ML 2 ML VIAL IV PRN (02:11)
[2021-07-16] MEDS ORDERED: PANTOprazole 40 MG TAB PO PRN (02:28)
[2021-07-16 05:59] LABS: Basophils # (auto) 0.01 K/uL (0-0.2); Basophils % (auto) 0.1 %; Eosinophils # (auto) 0.39 K/uL (0-0.5); Eosinophils % (auto) 5.8 %; Hematocrit (blood only) 46.2 % (42-52); Hemoglobin 15.6 g/dL (14.0-18.0); Immature Granulocytes # (auto) 0.01 K/uL (0.00-0.02); Immature Granulocytes % (auto) 0.1 %; Lymphocytes # (auto) 2.23 K/uL (1.2-3.4); Lymphocytes % (auto) 33.1 %; Mean Corpuscular Hgb Conc 33.8 g/dL (32-36); Mean Corpuscular Volume 91.7 fL (80-100); Mean Platelet Volume 9.3 fL (7.4-10.4); Monocytes # (auto) 0.88 K/uL (0.11-0.59); Monocytes % (auto) 13.1 %; Neutrophils # (auto) 3.22 K/uL (1.4-6.5); Neutrophils % (auto) 47.8 %; Platelet Count 304 K/uL (130-400); RDW Standard Deviation 43.5 fL (36.4-46.3); Red Blood Count 5.04 M/uL (4.7-6.1); White Blood Count 6.74 K/uL (4.8-10.8)
[2021-07-16 06:02] LABS: Troponin I < 0.03 ng/ml (0-0.04)
[2021-07-16 06:09] LABS: Anion Gap 5 (3-11); Blood Urea Nitrogen 14 mg/dl (6-23); Carbon Dioxide 31 mmol/L (21-32); Chloride 105 mmol/L (98-107); Creatinine Clr Calc Pharmacy 116.9 ml/min; Est GFR (African American) 94.9 ml/min; Est GFR (Non-African American) 81.9 ml/min; Glucose 93 mg/dl (70-99(Fasting)); Magnesium 2.2 mg/dl (1.7-2.4); Potassium 3.9 mmol/L (3.5-5.1); Sodium 141 mmol/L (136-145)
--- NOTE | 2021-07-16 09:32 | Cardiology Consultation ---
Date of Consultation July 16, 2021 Assessment & Plan (1) Palpitations: (2) COVID-19 virus infection: 45 yo unvaccinated male recovering from recent Covid 19 infection presents with palpitations that he calls PVC's no arrhythmias on monitor or significant PVC burden despite continued symptoms of palpitations echocardiogram unremarkable without significant structural abnormality. likely post-covid 19 recovery sequelae when asked why he did not receive vaccination: "I didn't need it." no indication for further cardiac testing or intervention at this time ok to d/c to home from cardiac standpoint no cardiac follow up as an outpatient already been seen by pcp, recommend f/u with pcp to review zio results History of Present Illness Reason for Consultation: palpitations Attending Physician: Johnie Zamarripa MD History of Present Illness 45 yo male presented to [facility] ED on 07/15/21 with complaints of PVC's. Pt states that he's had PVC's for most of his life. States that for the last week they have been increasing in frequency. Describes episodes as a sudden/fleeting sensation of an extra heart beat in his chest. Denies associated cp, sob, lightheadedness, dizziness or syncope. Recently diagnosed with COVID 19, unvaccinated. States that breathing has been slow to improve since infection. Seen by PCP recently and Zio patch placed. Pt has a smart watch and showed me a 30 second rhythm strip that appeared to be sinus with a single PVC. No arrhythmias on monitor. No significant PVC's either. Pt states that symptoms have continued overnight while on monitor. Allergies Allergy/AdvReac Type Severity Reaction Status Date / Time No Known Allergies Allergy Verified 07/15/21 21:14 Home Medications Medication Instructions Recorded Confirmed Type omeprazole 20 mg delayed 20 mg PO DAILY PRN 06/29/18 07/15/21 History release,disintegrating tablet Patient History Medical History COVID Palpitations Surgical History Hx of appendectomy Family History Other Diabetes Hypertension Social History Smoking Status: Former smoker Do You Dip or Chew Tobacco: No; Tobacco Cessation Education Requested by Patient: No Hx Alcohol Use: Yes Hx Substance Use: No Preferred Language: Monegasque Communication Ability: Effective 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 No acute distress. HEENT: Normocephalic, atraumatic. Pupils equal, round and reactive to light and accommodation. Extraocular muscles are intact. Anicteric sclera. Moist mucous membranes. Neck: No JVD. No bruit. Cardiovascular: Regular. No S-4. Normal S-1 and S-2. No S-3. No murmurs, rubs or gallops. Pulmonary: Clear to auscultation bilaterally. No rales, rhonchi, or wheezing. Abdomen: Bowel sounds x 4, soft. No rebound, guarding or tenderness. No organomegaly. Extremities: No clubbing, cyanosis or edema. +2 pedal pulses bilaterally. Skin: Warm and dry. Results & Data ([facility]) Vital Signs (Past 12 Hours) Vital Signs Temp Pulse Pulse Resp BP BP Pulse Ox 07/16/21 06:33 36.4 C L 67 20 143/81 H 98 07/16/21 06:15 64 20 130/73 97 07/16/21 04:20 63 19 118/76 96 07/16/21 03:00 67 24 119/83 96 07/16/21 02:30 64 17 117/71 95 07/16/21 02:00 62 18 119/70 96 07/16/21 01:30 67 17 121/77 95 07/16/21 01:00 66 17 127/79 95 07/16/21 00:30 65 20 119/73 95 07/16/21 00:00 64 19 130/79 94 07/15/21 23:30 63 22 132/79 95 07/15/21 22:30 63 17 134/82 97 07/15/21 22:00 63 20 131/93 98 Pulse Ox 07/16/21 06:33 07/16/21 06:15 07/16/21 04:20 96 07/16/21 03:00 07/16/21 02:30 07/16/21 02:00 07/16/21 01:30 07/16/21 01:00 07/16/21 00:30 07/16/21 00:00 07/15/21 23:30 07/15/21 22:30 07/15/21 22:00
[2021-07-16 10:59] VITALS: BP 127/77; PULSE 69; TEMP 97.7; O2SAT 97
--- NOTE | 2021-07-16 12:37 | Hospitalist Progress Note ---
Date of Service July 16, 2021 Assessment & Plan (1) Palpitations: Plan: Patient is a 45 yr male presents with frequent PVCs, and chest pain. Palpitations H/O recent COVID-19 infection No arrhythmias on monitor -ECHO unremarkable without significant structural abnormality as per Cardiology Palpitations likely post COVID-19 sequela Currently on Zio patch Appreciate cardiology input Advised to follow-up with PCP as outpatient GERD Continue PPI H/O Pulmonary sarcoidosis Follow up as outpatient DVT Px: SCDs Admission and Anticipated Discharge Date Admission Date: July 15, 2021 Subjective Patient is seen and examined at bedside States feeling well today Denies any recurrence of palpitations Also denies any chest pain, dyspnea, dizziness, nausea, abdominal pain Review of Systems Review of Systems: All systems reviewed & are unremarkable except as noted in Subjective Physical Exam Physical Exam: Physical Exam: Vitals signs as noted above General Appearance:Moderately built and nourished, no apparent distress Head: normocephalic, Atraumatic Eyes: normal inspection, EOMI Neck: supple, Trachea midline Respiratory/Chest: Normal breath sounds, CTA, No accessory muscle use Cardiovascular: S1, S2, No murmur Abdomen/GI:Soft, Non tender, Bowel sounds present Extremities/Musculoskeletal:normal inspection, no edema Neurologic/Psych:AAOX3, grossly no focal neurological deficits Skin: normal color, warm Results & Data Results & Data ([facility]) Vital Signs (Past 12 Hours) Vital Signs Temp Pulse Pulse Resp BP BP BP 07/16/21 10:58 36.5 C 69 20 127/77 07/16/21 08:00 64 07/16/21 06:33 36.4 C L 67 20 143/81 H 07/16/21 06:15 64 20 130/73 07/16/21 04:20 63 19 118/76 07/16/21 03:00 67 24 119/83 07/16/21 02:30 64 17 117/71 07/16/21 02:00 62 18 119/70 07/16/21 01:30 67 17 121/77 07/16/21 01:00 66 17 127/79 Pulse Ox Pulse Ox 07/16/21 10:58 97 07/16/21 08:00 07/16/21 06:33 98 07/16/21 06:15 97 07/16/21 04:20 96 96 07/16/21 03:00 96 07/16/21 02:30 95 07/16/21 02:00 96 07/16/21 01:30 95 07/16/21 01:00 95 Laboratory Results Short CBC 07/15/21 07/16/21 Range/Units 17:32 05:13 WBC 6.97 6.74 (4.8-10.8) K/uL Hgb 15.7 15.6 (14.0-18.0) g/dL Hct 46.0 46.2 (42-52) % Plt Count 329 304 (130-400) K/uL BMP 07/15/21 07/16/21 17:32 05:13 Sodium 138 141 Potassium 3.7 3.9 Chloride 103 105 Carbon Dioxide 29 31 BUN 12 14 Creatinine 0.98 1.08 Glucose 88 93 Calcium 9.1 9.0 Cardiac Enzymes 07/15/21 07/16/21 07/16/21 Range/Units 17:32 05:13 08:58 Troponin I < 0.03 < 0.03 < 0.03 (0-0.04) ng/ml Liver Function 07/15/21 Range/Units 17:32 Total Bilirubin 0.9 (0.2-1.0) mg/dl AST 21 (13-39) U/L ALT 30 (7-52) U/L Alkaline Phosphatase 63 (34-104) U/L Albumin 4.4 (3.4-5.0) gm/dl Urine 07/15/21 Range/Units 18:00 Urine Color Yellow Urine Appearance Clear (Clear) Urine pH 6.5 (4.5-7.5) Ur Specific [place] 1.006 (1.000-1.030) Urine Protein Negative (Negative) Urine Glucose (UA) Negative (Negative)
--- NOTE | 2021-07-16 12:46 | Discharge Summary ---
Date of Service July 16, 2021 Admission HPI Per Admitting Provider CHIEF COMPLAINT: Arrhythmia, chest pain. HISTORY OF PRESENT ILLNESS: This is a 45-year-old male with a past medical history significant for pulmonary sarcoidosis, dyspnea on exertion. He had COVID in May [id number]. The patient is having frequent PVCs. He was recently placed on Zio patch for his PVCs, but the patient says lately it is getting more frequent.. Sometimes he feels some stinging in his chest. Today it was constant, he was getting tired and also shortness of breath on exertion, which prompted him to come to the ER. Since COVID in May, he still feels tired. Currently, resting comfortably and hemodynamically stable. Currently, denies any shortness of breath. No cough, no headache. Once in a while, he gets blurred visions. No runny nose, no sore throat. Appetite is okay. No difficulty swallowing. No nausea, no abdominal pain. Normal bowel and bladder movements. Ambulating and climbing steps fine. Admission Exam Per Admitting Provider PHYSICAL EXAMINATION: GENERAL: The patient is of moderate build, not in acute distress. VITAL SIGNS: Temperature 36.3, pulse 63, respiratory rate 17, blood pressure 134/82, oxygen 97% on room air. HEENT: Pupils equal, round, and reactive to light. Oral mucosa moist. NECK: No JVD, no neck masses. CARDIOVASCULAR: S1 and S2 heard. Regular rate and rhythm. No murmur, no gallop. RESPIRATORY SYSTEM: Normal AP diameter. No accessory muscle use. No wheezing, no crackles. ABDOMEN: Soft, bowel sounds present, nontender, no distention. CENTRAL NERVOUS SYSTEM: Cranial nerves II-XII grossly intact, nonfocal. EXTREMITIES: No edema, no erythema. Principal Diagnosis Palpitations Discharge Exam Physical Exam: Vitals signs as noted above General Appearance:Moderately built and nourished, no apparent distress Head: normocephalic, Atraumatic Eyes: normal inspection, EOMI Neck: supple, Trachea midline Respiratory/Chest: Normal breath sounds, CTA, No accessory muscle use Cardiovascular: S1, S2, No murmur Abdomen/GI:Soft, Non tender, Bowel sounds present Extremities/Musculoskeletal:normal inspection, no edema Neurologic/Psych:AAOX3, grossly no focal neurological deficits Skin: normal color, warm Discharge Data Allergies Allergy/AdvReac Type Severity Reaction Status Date / Time No Known Allergies Allergy Verified 07/15/21 21:14 Consultations 07/15/21 21:21 ED Decision to Admit Stat 07/16/21 08:00 Consult Cardiology Routine Hospital Course (1) Palpitations: Patient is a 45 yr male presents with frequent PVCs, and chest pain. Palpitations H/O recent COVID-19 infection No arrhythmias on monitor -ECHO unremarkable without significant structural abnormality as per Cardiology Palpitations likely post COVID-19 sequela Currently on Zio patch Appreciate cardiology input Advised to follow-up with PCP as outpatient GERD Continue PPI H/O Pulmonary sarcoidosis Follow up as outpatient DVT Px: SCDs Total Time Total Time Spent Total Time Spent (In Minutes): 39 minutes Discharge Plan Discharge Items Patient Disposition: Home - Self-Care Reason For Visit: CHEST PAIN, PVC'S Discharge Diagnosis: Palpitations Activity: Per Instructions section Lifting: Gradually increase as tolerated Non-emergency contact: Primary Care Provider Call non-emergency contact if: you have any medication questions, your symptoms worsen, your pain is concerning for you and you have a fever Follow-up/Referrals: Garret Pena DO [Primary Care Provider] - (Date & Time 07/21/2021 11:20 AM Provider Garret Pena DO Department [facility] ) Diet: Heart Healthy Addtl Attending Provider Instructions: Follow-up with your primary care physician on 07/21/2021 11:20 AM as scheduled --- Minimize caffeine intake as advised. Seek immediate medical attention if your symptoms reoccur or worsen Please take all medications as instructed on discharge list below. Please call if you have any questions or problems. You can reach a [facility] hospitalist on duty at [facility] 24 hours a day by calling [phone] Pending Studies at Discharge: No Stand-Alone Forms: My [facility], Smoking Cessation Medications and DC Order Prescriptions: Continued omeprazole 20 mg Tablet,Disintegrat, Delay Rel 20 mg PO DAILY PRN (Reason: Acid Reflux) RF: 0 Discharge Orders: Discharge Order (Routine); Ordered 07/16/21 Ordered By: Johnie Zamarripa Admission Data Admit Date/Time: 07/15/21 23:23 Attending Provider: Johnie Zamarripait Provider: Anant Ferrer Primary Care Provider: Garret Pena Other Providers: Anant Ferrer ; Zafar Greer ; Mervin Mcbride ; Chai Morrell ; Arthur Torres ; Luis Gaxiola ; Efrain Booth ; Maricruz Webster ; Simran Norton ; Marisa Ontiveros ; Tung Astudillo
--- NOTE | 2021-07-16 14:51 | Electrocardiogram Report ---
Test Reason : Blood Pressure : / mmHG Vent. Rate : 070 BPM Atrial Rate : 070 BPM P-R Int : 126 ms QRS Dur : 088 ms QT Int : 378 ms P-R-T Axes : -03 -02 021 degrees QTc Int : 408 ms Normal sinus rhythm Normal ECG When compared with ECG of 27-MAR-2021 14:23, No significant change was found Confirmed by Rodo Ho ([id number]) on 07/16/2021 2:51:15 PM Referred By: REFERRED SELF Confirmed By:Yair Ho
--- NOTE | 2021-07-16 15:44 | Electrocardiogram Report ---
Test Reason : Blood Pressure : / mmHG Vent. Rate : 064 BPM Atrial Rate : 064 BPM P-R Int : 134 ms QRS Dur : 084 ms QT Int : 412 ms P-R-T Axes : 024 006 022 degrees QTc Int : 425 ms Normal sinus rhythm Normal ECG When compared with ECG of 15-JUL-2021 17:28, (unconfirmed) No significant change was found Confirmed by Rodo Ho ([id number]) on 07/16/2021 3:43:36 PM Referred By: REFERRED SELF Confirmed By:Yair Ho
== END 2021-07-16 13:35 | disposition home or self-care (01) ==
LOC: ED 16:48 → EDINP 16:48 → SUATTDRO 23:23 → 2N 07-16 01:47
DX: R00.2 Palpitations; Z87.891 Personal history of nicotine dependence; U07.1 COVID-19